=== PATIENT | male | born 1995 | race African-American/Black ===

== ENCOUNTER 2023-11-09 14:19 | Emergency (ER) | payer SELFPAY ==
[~2023-11-09] VITALS: Ht 177.8 cm; Wt 80.0 kg
[2023-11-09 14:33] VITALS: BP 134/94; PULSE 89; RESP 20; TEMP 97.9; O2SAT 100
[2023-11-09] MEDS ORDERED: IBUP-2029 MT (14:33)
[2023-11-09] MEDS ORDERED: AMOX-494 MT (14:33)
== END 2023-11-09 14:54 | disposition home or self-care (01) ==
LOC: ER 14:19
DX: K04.7 Periapical abscess without sinus (principal)
CPT/HCPCS: 99283

== ENCOUNTER 2023-12-01 17:00 | Emergency (ER) | payer SELFPAY ==
[~2023-12-01] VITALS: Ht 180.3 cm; Wt 63.5 kg
[~2023-12-01 17:00] MED LIST: AMOX-494 MT; IBUP-2029 MT
[2023-12-01 17:25] VITALS: O2SAT 98
[2023-12-01 18:06] VITALS: BP 118/61; PULSE 88; RESP 18; TEMP 98.3
== END 2023-12-01 18:06 | disposition home or self-care (01) ==
LOC: ER 17:00
DX: S90.551A Superficial foreign body, right ankle, initial encounter (principal); X58.XXXA Exposure to other specified factors, initial encounter; Y93.89 Activity, other specified; Y92.89 Other specified places as the place of occurrence of the external cause; Y99.8 Other external cause status
CPT/HCPCS: 99281

== ENCOUNTER 2024-05-26 14:47 | Emergency (ER) | payer MEDICAID, OTHER ==
[~2024-05-26] VITALS: Ht 170.2 cm; Wt 65.0 kg
[2024-05-26 14:49] VITALS: BP 133/94; PULSE 90; RESP 18; TEMP 98.5; O2SAT 98
[2024-05-26 15:28] LABS: CHLORIDE 114 mEq/L (98-107); SODIUM 146 mEq/L (136-145)
[2024-05-26 15:29] LABS: CARBON DIOXIDE 21 mEq/L (21-32)
[2024-05-26 15:30] LABS: DIFFERENTIAL COMMENT 0; EOSINOPHILS % 1.8 % (0.0-5.0); HEMATOCRIT. 35.3 % (42.0-52.0); HEMOGLOBIN. 11.6 g/dL (14.0-18.0); LYMPHOCYTES % 14.9 % (20.0-50.0); MEAN CORPUSCULAR HGB CONC 32.9 g/dL (31.0-37.0); MEAN CORPUSCULAR VOLUME 100.2 fL (80.0-94.0); MEAN PLATELET VOLUME 8.8 fl (7.4-10.4); MONOCYTES % 5.2 % (2.0-8.0); NEUTROPHILS % 77.1 % (40.0-76.0); PLATELET 213 x1000/uL (130-400); RED BLOOD CELL COUNT 3.52 mill/uL (4.7-6.1); RED CELL DISTRIBUTION WIDTH 13.1 % (11.6-14.6); WHITE BLOOD COUNT 7.4 x1000/uL (4.5-11.0)
[2024-05-26 15:34] LABS: CREATININE 1.2 mg/dL (0.6-1.3); GLUCOSE 113 mg/dL (70-105); UREA NITROGEN BLOOD 15 mg/dL (9-23)
[2024-05-26 15:35] LABS: ETHANOL BLOOD 221 mg/dL (<10)
[2024-05-26] MEDS: LACTATED RINGERS 1,000 ML IV SCH (15:47)
== END 2024-05-26 17:27 | disposition left against medical advice (07) ==
LOC: ER 14:47
DX: F10.129 Alcohol abuse with intoxication, unspecified (principal); Y90.7 Blood alcohol level of 200-239 mg/100 ml
CPT/HCPCS: 36415; 80048; 80320; 85025; 99283; G0480